=== PATIENT | female | born 1995 | race Caucasian/White ===

== ENCOUNTER 2020-11-14 17:42 | Emergency (ER) | payer OTHER ==
[~2020-11-14] VITALS: Ht 160 cm; Wt 90.9 kg
--- NOTE | 2020-11-14 19:30 | NUR ---
PT TO ROOM FROM LOBBY
--- NOTE | 2020-11-14 19:32 | NUR ---
AMBULATORY TO ED ROOM 5 W/ STEADY GAIT.
--- NOTE | 2020-11-14 19:48 | NUR ---
PT ENDORSED TO SANTA NGUYỄN RN.
[2020-11-14 19:52] VITALS: BP 108/73
--- NOTE | 2020-11-14 20:25 | NUR ---
PT REPORT FROM CAMERON NGUYỄN. PT AWAITING DISPOSITION
--- NOTE | 2020-11-14 20:26 | NUR ---
DR CORONA AT BS
[2020-11-14] MEDS ORDERED: IBUPROFEN 200 MG TABLET PO ONE (20:30)
[2020-11-14] MEDS ORDERED: IBUPROFEN 600 MG TABLET ONE (20:39)
--- NOTE | 2020-11-14 20:49 | NUR ---
MOTRIN GIVEN PER EMAR
== END 2020-11-14 21:07 | disposition home or self-care (01) ==
LOC: ED 20:30
DX: S40.012A Contusion of left shoulder, initial encounter (principal); S70.12XA Contusion of left thigh, initial encounter; F17.210 Nicotine dependence, cigarettes, uncomplicated; W00.0XXA Fall on same level due to ice and snow, initial encounter; Y93.89 Activity, other specified; Y92.89 Other specified places as the place of occurrence of the external cause; Y99.8 Other external cause status
CPT/HCPCS: 99284